=== PATIENT | female | born 1960 | race African-American/Black ===

== ENCOUNTER 2017-11-11 01:48 | Inpatient (IN) | payer BC ==
[~2017-11-11] VITALS: Ht 160 cm; Wt 56.4 kg
[2017-11-11 01:59] VITALS: Ht 160 cm; Wt 56.4 kg
[2017-11-11 03:05] LABS: BASOPHIL % 0.3 % (0-2); PLATELET COUNT 198 x10^3mcL (130-400); RED CELL DISTRIBUTION WIDTH 14.3 % (11.5-14.5)
[2017-11-11 03:18] LABS: CALCIUM 9.3 mg/dL (8.5-10.1); CARBON DIOXIDE 27.4 mmol/L (21-32); CHLORIDE SERUM 105 mmol/L (98-107); CREATININE SERUM 0.9 mg/dL (0.6-1.0); GFR1 > 60 mL/min; GLUCOSE SERUM 124 mg/dL (74-106); POTASSIUM SERUM 3.8 mmol/L (3.5-5.1); SODIUM SERUM 137 mmol/L (136-145)
[2017-11-11 03:23] LABS: ALBUMIN 3.8 g/dL (3.4-5.0); ALKALINE PHOSPHATASE 52 U/L (46-116); ALT/SGPT 38 U/L (14-59); AST/SGOT 26 U/L (15-37); BILIRUBIN TOTAL 0.32 mg/dL (0.20-1.00); LIPASE 128 IU/L (73-393); TOTAL PROTEIN, SERUM 7.6 g/dL (6.4-8.2)
[2017-11-11] MEDS ORDERED: CELEXA20 MG PO (04:39)
[2017-11-11] MEDS ORDERED: PRA40 PO (04:39)
[2017-11-11] MEDS ORDERED: ATENOLOL50 MG PO (04:39)
[2017-11-11] MEDS ORDERED: ZETIA10 M1 PO (04:39)
[2017-11-11 05:02] LABS: MAGNESIUM 2.1 mg/dL (1.8-2.4); PHOSPHOROUS 3.6 mg/dL (2.5-4.9)
[2017-11-11 05:03] LABS: CHOLESTEROL/HDL RATIO 1.9
[2017-11-11 05:10] LABS: T3 TOTAL 1.07 ng/mL
[2017-11-11 05:12] LABS: FREE T4 0.97 ng/dL (0.76-1.46); FREE THYROXINE INDEX 2.9 ug/dL (1.4-4.5); T4(THYROXINE) 8.9 ug/dL (4.7-13.3)
[2017-11-11 05:23] VITALS: BP 107/60
[2017-11-11] MEDS ORDERED: GOOD SENSE ASPI81 M3 PO (05:40)
[2017-11-11] MEDS ORDERED: RANEXA500 M2 PO (05:41)
[2017-11-11 08:15] VITALS: BP 114/66
[2017-11-11 08:36] LABS: UA SPECIFIC GRAVITY <=1.005 (1.005-1.035); microscopic required? YES; urine erythrocyte TRACE (NEGATIVE)
[2017-11-11 08:55] LABS: AMPHETAMINE QUAL UR NONE DETECTED (NEG <=1000)
[2017-11-11 13:39] VITALS: BP 105/59
[2017-11-11 15:21] VITALS: BP 105/59
== END 2017-11-11 17:45 | disposition home or self-care (01) | DRG 313 ==
LOC: ED 01:48 → DU 04:26
PROVIDERS: Emergency Medicine; Family Medicine
DX: R07.89 Other chest pain (principal); I10 Essential (primary) hypertension; Z83.3 Family history of diabetes mellitus; Z82.49 Family history of ischemic heart disease and other diseases of the circulatory system; R73.9 Hyperglycemia, unspecified; E78.5 Hyperlipidemia, unspecified; M25.512 Pain in left shoulder
CPT/HCPCS: 83880; 84439; J7030; Q0092